=== PATIENT | female | born 1965 | race Caucasian/White ===

== ENCOUNTER 2023-01-19 10:52 | Outpatient (AMB) | payer MEDICARE, MEDICAID, SELFPAY ==
--- NOTE | 2023-01-19 11:02 | A.OFFVIS_ITS ---
Intake Intake Visit Reasons: cervical radiculopathy Brazer Resistance Required: No Assessment & Plan Assessment & Plan (1) Numbness and tingling of right arm and leg: Code(s): R20.0 - Anesthesia of skin; R20.2 - Paresthesia of skin Plan Dear Fabi Thank you for referring Mrs Uribe to our office today. She is a very nice 57-year-old female presents to the office for evaluation of symptoms in her right arm, right chest in her right leg. She has a somewhat difficult historian, has a lot of difficulty remembering things. She could recall when the symptoms started. She describes it as pain going down from her neck across the top of her shoulder into her arm and hand and subsequently turned back around goes down the right side of her chest, right side of her abdomen down into her right leg into her whole distal leg. There is a numbness sensation associated with this. She had been seen at [facility] it sounds like and was given an injection which did not help. She will put diclofenac topical gel on and sometimes that helps. She tried physical therapy without any relief. She is here today for surgical evaluation of MRI showing degenerative disc disease in the cervical spine. The symptoms are present all the time, they never go away. Some days are better than others however. PMH: History of depression, anxiety, high cholesterol and a remote history of a stroke in 2014. She was unable to give me any further details about why she had the stroke her what her symptoms were or how she recovered. Social hx: She does not smoke Medications: Olanzapine, venlafaxine, mirtazapine, simvastatin, omeprazole, albuterol, diclofenac, ketoconazole, low-dose aspirin, centrum Allergies: Compazine shellfish Physical exam: Awake alert oriented no acute distress, she is very forgetful, I think she may have some degree of developmental delay. Motor exam was limited by effort, but she is moving all major muscle groups. Slightly hyperreflexic in the left side with borderline Ani sign and maybe beat of clonus her left ankle. Gait is normal. Negative Ani sign. Cranial nerves are intact. Imaging review: She has cervical MRI done at [facility] showing [id number] cervical degenerative disc disease, worse at C5-6 where there is moderate foraminal stenosis. There is no cord signal change or any specific spinal cord compression that I can see. Impression: 57-year-old female presents with somewhat unusual and atypical symptoms that she has had for what is maybe a year or more. She is a difficult historian and had a hard time explaining much of the details to me but from what I gather, she has had pain going from her neck down into her arm, along her chest and her flank into her right leg. Some days are better than others but the symptoms are generally there all the time. She has some moderate disc degeneration at C5-6 but no cord compression that would explain diffuse pain long the whole right side of her body. The she does have a remote history of a stroke, and it is well-known that thalamic stroke can cause phu sensory pain syndromes. I am going to get a brain MRI to rule this out given her history of stroke. I will also get a new cervical MRI to see if anything has changed since her last 1 was 10 months ago and she tells me that the symptoms have gotten worse. Thank you for allowing us to care for your patient. The total time spent with this visit with this patient was 45 minutes reviewing history, physical exam, cervical MRI imaging review, and implementation of treatment plan or further diagnostic testing Rafa Marcus MD,PhD [facility] Orders: Orders MR head/brain wo con Today R20.0 - Anesthesia of skin, R20.2 - Paresthesia of skin MR cervical spine wo con Today R20.0 - Anesthesia of skin, R20.2 - Paresthesia of skin Coding Level of Care Code New Pt Level 4 ([id number]) Diagnoses Numbness and tingling of right arm and leg R20.0; R20.2
== END 2023-01-19 11:21 | disposition home or self-care (01) ==
PROVIDERS: PCP Internal Medicine; Referring Provider Internal Medicine; Visit Provider Physician Assistant
DX: R20.0 Anesthesia of skin (principal); R20.2 Paresthesia of skin
CPT/HCPCS: 99204

== ENCOUNTER → 2023-01-19 10:52 | Outpatient (BNVA) | payer MEDICARE, MEDICAID, SELFPAY | PROVIDERS: PCP Internal Medicine; Referring Provider Internal Medicine; Visit Provider Physician Assistant | DX: R20.0 Anesthesia of skin (principal); R20.2 Paresthesia of skin | CPT/HCPCS: 99202 ==